=== PATIENT | female | born 1975 | race Caucasian/White ===

== ENCOUNTER → 2021-08-25 | Outpatient (CLI) | payer MEDICARE, OTHER | LOC: KOH-I 14:54 | DX: Z13.29 Encounter for screening for other suspected endocrine disorder (principal) | CPT/HCPCS: 76536 ==

== ENCOUNTER 2022-05-01 22:46 | Emergency (ER) | payer MEDICARE, OTHER ==
[2022-05-01 23:31] LABS: HEMOGLOBIN 13.8 gm/dl (12.3-15.3); RED BLOOD COUNT 4.51 M/UL (4.00-5.10); WHITE BLOOD COUNT 4.9 K/UL (4.5-11.0)
[2022-05-01 23:52] LABS: BUN/CREATININE RATIO 26 (0-10)
== END 2022-05-02 03:42 | disposition home or self-care (01) ==
LOC: ER1 22:46
PROVIDERS: Student in an Organized Health Care Education/Training Program
DX: U07.1 COVID-19 (principal); I50.9 Heart failure, unspecified; Z88.8 Allergy status to other drugs, medicaments and biological substances
CPT/HCPCS: 71046; 80053; 82550; 82553; 84484; 85025; 93005; 99285; Q9967

== ENCOUNTER 2022-06-14 10:17 | Emergency (ER) | payer OTHER ==
[2022-06-14 10:41] LABS: HEMOGLOBIN 14.1 gm/dl (12.3-15.3); RED BLOOD COUNT 4.64 M/UL (4.00-5.10); WHITE BLOOD COUNT 5.6 K/UL (4.5-11.0)
[2022-06-14 11:04] LABS: BUN/CREATININE RATIO 22 (0-10)
== END 2022-06-14 11:27 ==
LOC: ER1 10:17
PROVIDERS: Emergency Medicine
DX: I63.9 Cerebral infarction, unspecified (principal); R29.705 NIHSS score 5; I25.2 Old myocardial infarction; F17.290 Nicotine dependence, other tobacco product, uncomplicated
CPT/HCPCS: 70450; 71045; 80053; 82550; 82553; 84484; 85025; 85610; 85730; 93005; 99285